=== PATIENT | male | born 1980 | race Asian ===

== ENCOUNTER 2017-02-26 23:41 | Emergency (ER) | payer OTHER ==
[2017-02-27 02:03] VITALS: BP 120/60
== END 2017-02-27 01:55 | disposition home or self-care (01) ==
LOC: ED 23:41
DX: S62.605A Fracture of unspecified phalanx of left ring finger, initial encounter for closed fracture (principal); S61.313A Laceration without foreign body of left middle finger with damage to nail, initial encounter; S61.315A Laceration without foreign body of left ring finger with damage to nail, initial encounter; Z79.1 Long term (current) use of non-steroidal anti-inflammatories (NSAID); W31.89XA Contact with other specified machinery, initial encounter; Y93.89 Activity, other specified; Y92.89 Other specified places as the place of occurrence of the external cause; Y99.8 Other external cause status
CPT/HCPCS: 90715; J0690; J3490; Q0092